=== PATIENT | female | born 1955 | race Hispanic/Latino ===

== ENCOUNTER 2017-10-12 03:53 | Emergency (ER) | payer SELFPAY ==
[2017-10-12] MEDS ORDERED: ONDANSETRON HCL 4 MG/2 ML VIAL ONE (04:16)
[2017-10-12 04:19] LABS: BASOPHILS % (AUTO) 0.6 % (0.0-5.0); EOSINOPHILS % (AUTO) 0.2 % (0.0-8.0); HEMATOCRIT 33.3 % (36-48); LYMPHOCYTES % (AUTO) 35.7 % (21.0-51.0); MEAN CORPUSCULAR HEMOGLOBIN 30.4 pg (27.0-33.0); MEAN CORPUSCULAR HGB CONC 34.2 g/dL (32.0-36.0); MEAN CORPUSCULAR VOLUME 88.8 fL (79-99); MONOCYTES % (AUTO) 5.5 % (3.0-13.0); PLATELET COUNT (AUTO) 346 K/uL (130-400); RED BLOOD CELL COUNT(AUTO) 3.74 MIL/uL (4.00-5.50); RED CELL DISTRIBUTION WIDTH 13.7 % (11.0-15.5); WHITE BLOOD COUNT (AUTO) 7.1 K/uL (4.8-10.8)
[2017-10-12 04:28] LABS: CREATININE 0.5 mg/dL (0.5-1.5); POTASSIUM 3.1 mmol/L (3.5-5.1)
[2017-10-12 04:31] LABS: APPEARANCE,URINE Clear (CLEAR); BILIRUBIN,URINE Negative (NEGATIVE); COLOR,URINE Dark Yellow (YELLOW); GLUCOSE, URINE (UA) Negative (NEGATIVE); KETONES,URINE 40 mg/dL (NEGATIVE); LEUKOCYTE ESTERASE ,URINE Trace (NEGATIVE); NITRATE,URINE Positive (NEGATIVE); OCCULT BLOOD,URINE Negative (NEGATIVE); PH,URINE 7.5 (5.0-8.0); PROTEIN,URINE Negative (NEGATIVE)
[2017-10-12 04:39] LABS: INR 1.03 (0.85-1.15); PARTIAL THROMBOPLASTIN TIME 26.2 SEC (26.3-35.5); PROTHROMBIN TIME 10.8 SEC (9.6-11.6)
[2017-10-12 04:42] LABS: ALBUMIN 3.5 g/dL (3.5-5.0); BILIRUBIN,TOTAL 0.6 mg/dL (0.2-1.0); TOTAL PROTEIN, SERUM 6.8 g/dL (6.0-8.3)
[2017-10-12] MEDS ORDERED: FAMOTIDINE/PF 20 MG/2 ML VIAL IV ONE (04:43)
[2017-10-12] MEDS ORDERED: LACTATED RINGERS 1000ML 1,000 ML IV ONE (04:43)
[2017-10-12 04:49] LABS: BACTERIA,URINE Few /HPF (None Seen); RBC,URINE None Seen /HPF (0-1); SQUAMOUS EPITHELIAL CELL,UR Rare /LPF (0-2); WBC,URINE 0-1 /HPF (0-1)
[2017-10-12] MEDS ORDERED: LORAZEPAM 2 MG/ML 1 ML VIAL ONE (07:16)
== END 2017-10-12 07:49 | disposition home or self-care (01) ==
LOC: EDH 03:53
DX: K92.0 Hematemesis (principal); F41.9 Anxiety disorder, unspecified; N39.0 Urinary tract infection, site not specified
CPT/HCPCS: 36415; 80053; 81001; 82270; 83690; 85025; 85610; 85730; 86850; 86900; 86901; 87088; 87186; 96361; 96374; 96375; 99285; J2060; J2405; J3490; J7120

== ENCOUNTER 2022-07-27 08:30 | Emergency (ER) | payer OTHER ==
[~2022-07-27] VITALS: Ht 157.5 cm; Wt 61.2 kg
[2022-07-27] MEDS ORDERED: KETOROLAC 60 MG VIAL (30MG/ML) IM ONE (11:00)
[2022-07-27] MEDS ORDERED: DICL20GE TP (11:18)
[2022-07-27 11:38] VITALS: BP 123/78
== END 2022-07-27 11:39 | disposition home or self-care (01) ==
LOC: EDH 08:30
DX: M25.561 Pain in right knee (principal); M25.562 Pain in left knee; F41.9 Anxiety disorder, unspecified; F32.A Depression, unspecified
CPT/HCPCS: 99283; 73562; 96372; J1885